=== PATIENT | male | born 1960 | race Caucasian/White ===

== ENCOUNTER 2017-06-09 12:24 | Emergency (ER) | payer OTHER ==
[2017-06-09 12:43] VITALS: BP 155/83; TEMP 97.2; O2SAT 100
--- NOTE | 2017-06-09 12:45 | ED.PDOC ---
History of Present Illness - General Chief Complaint: Lower Extremity Injury Stated Complaint: ankle pain Time Seen by Provider: 06/09/17 12:42 Source: patient Exam Limitations: no limitations - History of Present Illness Initial Comments: patient comes in for pain to his right foot after falling yesterday. Patient was working at his cabin and fell off of a 3 ft ladder injuring his right ankle. Patient states he was able to weight bear on it. It continues to hurt and he would like to have an x-ray to make sure it's okay. He is due to travel back to his home in [place] soon and he wanted to make sure it was okay before he left. He is able to able light with some pain and discomfort. He does have normal sensation almost the foot below the numbness on the top area of his great toe. He has no previous history of injury is otherwise healthy with no medical problems. Occurred: yesterday Pain - Lower Extremity: mild: Left Foot Method of Injury: fell Improving Factors: nothing Worsening Factors: movement Allergies/Adverse Reactions: Allergies NO KNOWN ALLERGY Allergy (Verified 06/09/17 12:42) Home Medications: Ambulatory Orders NK [NK] 06/09/17 Review of Systems - Review of Systems Constitutional: States: no symptoms reported EENTM: States: no symptoms reported Respiratory: States: no symptoms reported Cardiology: States: no symptoms reported Gastrointestinal/Abdominal: States: no symptoms reported Past Medical History (General) - Patient Medical History Hx Stroke: No Hx Congestive Heart Failure: No Hx Diabetes: No Surgical History: no surgical history - Vaccination History Hx Influenza Vaccination: No - Social History Hx Tobacco Use: No Family Medical History - Family History Father Family History: Unknown Living Status: Unknown Physical Exam - Physical Exam General Appearance: No apparent distress Cardiovascular/Respiratory: regular rate, rhythm, no M/R/G, normal peripheral pulses, normal breath sounds, no respiratory distress Gastrointestinal/Abdominal: non-tender Ankle: other - mild bruising and to the anterior middle of the talus bone with FROM of the foot and ankle. mild edema normal capillary refill Progress - EKG/XRAY/CT XRAY: ankle Xray Comments: verbal per Dr. Bonilla soft tissue swelling no fracture some bone spurs Departure - Departure Clinical Impression: Ankle contusion Qualifiers: Encounter type: initial encounter Laterality: left Qualified Code(s): S90.02XA - Contusion of left ankle, initial encounter Disposition: Discharge to Home or Self Care Departure Forms: ED Discharge - Pt. Copy, Patient Portal Self Enrollment Instructions: DI for Leg Pain Diet: regular diet Activity: increase activity as tolerated Home Medications: Ambulatory Orders NK [NK] 06/09/17 Additional Instructions: ROM and return to normal activity as able. Ice to the area BID and OTC Motrin 600 mg po BID prn. Follow up with PCP in 1 week if not better.
--- NOTE | 2017-06-10 06:26 | RAD ---
EXAM DESCRIPTION: Left ankle 3 views. CLINICAL HISTORY: Fall with left ankle pain. COMPARISON: None. TECHNIQUE: AP, lateral, and oblique images left ankle. FINDINGS: Thickening of the interosseous membrane distally between the tibia and fibula. Hypertrophic cortical changes on the lateral aspect of the distal tibia. Ankle mortise is congruent. No fracture lines. Minimal medial soft tissue swelling. Spurs on the inferior medial malleolus and on the base of the fifth metatarsal. Enthesophyte posterior calcaneus at the Achilles insertion with soft tissue swelling. Small rudimentary plantar calcaneal spur. Hypertrophic changes on the dorsal surface of the tarsal bones. No abnormal radiodense objects in the soft tissues or joint spaces. IMPRESSION: No fractures. Hypertrophic changes on the cortex of the lateral distal tibia at the insertion of the interosseous membrane. No acute bony abnormality. Marginal spurs in the ankle mortise calcaneus and tarsal bones. Medial soft tissue swelling. CRITICAL COMMUNICATION: The critical value was discussed directly by phone with Dr. Sariah Oliveira at approximately 1335 hours, on June 09, 2017. Electronically signed by: Mickey Bonilla MD 06/10/2017 6:24 AM CDT Workstation: [id number]
== END 2017-06-09 13:47 | disposition home or self-care (01) ==
LOC: ER 12:24
DX: S90.02XA Contusion of left ankle, initial encounter (principal); W11.XXXA Fall on and from ladder, initial encounter; Y92.009 Unspecified place in unspecified non-institutional (private) residence as the place of occurrence of the external cause